=== PATIENT | male | born 1945 | race Caucasian/White ===

== ENCOUNTER 2018-08-11 11:34 | Day surgery (SDC) | payer MEDICARE ==
[~2018-08-11] VITALS: Ht 170.2 cm; Wt 78.5 kg
[~2018-08-11 11:34] MED LIST: ATOR40TA PO; Aspirin EC81 MG; HYDCHL50 PO; LOSA50 PO; NITR.4SL SL; Toprol Xl25 MG PO
--- NOTE | 2018-08-11 13:46 | NUR ---
Surgical site prepped with 2% Chlorhexidine cloth wipe. History, Chart, Medications and Allergies reviewed before start of procedure.Lungs clear T/O to Auscultation. Patient confirms NPO status and agrees with scheduled surgery.
--- NOTE | 2018-08-11 19:09 | NUR ---
PT AWAKE AND ORIENTED. TOLERATING PO FOOD AND FLUIDS WITHOUT DIFFICULTY. PROVIDED 2 TABS PERCOCET W/O DIFFICULTY. ALL BELONGINGS RETURNED. GAVE A TOTAL OF 25MCGS IV FOR Discharge instructions reviewed with patient. Patient verbalizes understanding. Copy given to patient to take home. History, Chart, Medications and Allergies reviewed before start of procedure.Lungs clear T/O to Auscultation. Patient States Post-Procedure ride home has been arranged. Discharged via wheelchair to private car for ride home.
== END 2018-08-11 22:47 | disposition home or self-care (01) ==
LOC: ORSCMMR 11:34
PROVIDERS: Orthopaedic Surgery
PROC: 0LQM0ZZ Repair Left Upper Leg Tendon, Open Approach (ICD-10-PCS; principal; 2018-08-11 15:15)
DX: S76.112A Strain of left quadriceps muscle, fascia and tendon, initial encounter (principal); I10 Essential (primary) hypertension; Z79.899 Other long term (current) drug therapy; Z79.82 Long term (current) use of aspirin
CPT/HCPCS: C1713; J0690; J1100; J1885; J2250; J2405; J3010; J7120

== ENCOUNTER 2024-05-03 08:02 | Day surgery (SDC) | payer MEDICARE ==
[2024-05-03] VITALS (15 sets, daily range): BP systolic 100–160; BP diastolic 67–95
[~2024-05-03] VITALS: Ht 170.2 cm; Wt 77.6 kg
[~2024-05-03 08:02] MED LIST changes: +FAMO10 PO; +HYDCHL25 PO; +LOSARTAN POTAS100 MG PO; +NS 500 ML IV SCH; +Vitamin D2000 UNIT PO
--- NOTE | 2024-05-03 08:36 | NUR ---
Ambulatory in Day Surgery History, Chart, Medications and Allergies reviewed before start of procedure. Pre-Op teaching done. Pt verbalizes understanding. Patient States Post-Procedure ride home has been arranged.
[2024-05-03] MEDS ORDERED: propofoL 40 ML IV ONE (09:03)
--- NOTE | 2024-05-03 09:13 | NUR ---
05/03/24 0913 Neli Pichardo CONFIRMED AND REVIEWED H&P, MEDCICATIONS, ALLERGIES, MEDICAL HISTORY, RESPIRATORY HISTORY, VITAL SIGNS, 3-LEAD EKG, CONSENTS, AND PHYSICIAN ORDERS. PATIENT CONFIRMS NPO STATUS AND AGREES WITH SCHEDULED PROCEDURE. MONITOR INTACT WITH CONTINUOUS PULSE OXIMETRY, CAPNOGRAPHY, 3-LEAD EKG, INTERMITTENT BP. SUPPLEMENTAL O2 TO BE TITRATED THROUGHOUT PROCEDURE TO MAINTAIN O2 SATURATION ABOVE 90%. PATIENT DETERMINED TO BE ASA APPROPRIATE FOR PROPOFOL SEDATION PRIOR TO START OF PROCEDURE BY DR. HERMAN.
--- NOTE | 2024-05-03 10:06 | NUR ---
Patient up to Ambulate independently. Gait steady. Discharge instructions reviewed with patient. Patient verbalizes understanding. Copy given to patient to take home. Discharged via wheelchair to private car for ride home.
== END 2024-05-03 23:00 | disposition home or self-care (01) ==
LOC: ORSCMMR 08:02 → ORD 09:00 → ORSCMMR 09:00
PROVIDERS: Internal Medicine Gastroenterology
PROC: 0DBP8ZX Excision of Rectum, Via Natural or Artificial Opening Endoscopic, Diagnostic (ICD-10-PCS; principal; 2024-05-03 09:00)
DX: K62.5 Hemorrhage of anus and rectum (principal); Z86.0102 Personal history of hyperplastic colon polyps; K62.1 Rectal polyp; I10 Essential (primary) hypertension; K57.30 Diverticulosis of large intestine without perforation or abscess without bleeding
CPT/HCPCS: 88305; J2704; J7040